=== PATIENT | male | born 1975 | race Hispanic/Latino ===

== ENCOUNTER 2023-05-13 14:37 | Emergency (ER) | payer BC ==
[~2023-05-13] VITALS: Ht 172.7 cm; Wt 83.9 kg
[2023-05-13 15:00] VITALS: BP 158/82; PULSE 64; RESP 18
[2023-05-13] MEDS ORDERED: IBUP-2070 PO (17:44)
[2023-05-13] MEDS ORDERED: KETOROLAC 30MG VIAL (30MG/ML) IM ONE (18:00)
== END 2023-05-13 19:01 | disposition home or self-care (01) ==
LOC: EDH 14:37
DX: M25.512 Pain in left shoulder (principal)
CPT/HCPCS: 99284; 73030; 96372; J1885